=== PATIENT | male | born 1980 | race Caucasian/White ===

== ENCOUNTER 2017-01-24 17:02 | Emergency (ER) | payer OTHER ==
[2017-01-24 17:06] VITALS: BP 135/82; PULSE 110; TEMP 99; BMI 29.2
[2017-01-24] MEDS ORDERED: CEPHALEXIN MONOHYDRATE 500 MG CAPSULE (UD) PO ONE (18:35)
--- NOTE | 2017-01-24 18:40 | PDOC ---
History of Present Illness - General Chief Complaint: Redness To Affected Area Stated Complaint: INFECTION Time Seen by Provider: 01/24/17 18:13 History Source: Patient Exam Limitations: No Limitations - History of Present Illness Initial Comments: 01/24/17 18:37 Chief complaint: Tenderness between left fourth and fifth toe with redness and today redness has spread to dorsal foot slightly History of present illness: Patient is a 36-year-old male with no significant medical problems here today due to redness between his fourth and fifth toe for the last few days with tenderness and today patient noticed redness slightly proximal to those toes on his dorsal foot. Patient reported he had something like this in the past. Patient has noticeable peeling of his skin between his other toes and on plantar feet that is slightly itchy. Denies any fever. Timing/Duration: getting worse Severity: mild (redness between left 4 & 5 th toes and slightly proximal to toes today ) Associated Symptoms: reports: other (redness between left 4th & 5th toe, and proximal to those toes today) Past History - Past Medical History Allergies/Adverse Reactions: Allergies Allergy/AdvReac Type Severity Reaction Status Date / Time No Known Allergies Allergy Verified 01/24/17 17:07 Home Medications: Ambulatory Orders Cephalexin Monohydrate [Keflex -] 500 mg PO Q8H #29 capsule 01/24/17 Clotrimazole [Lotrimin 1% Cream -] 1 applic TP BID #1 tube MDD 2 01/24/17 Other medical history: NONE - Surgical History Appendectomy: Yes - Psycho/Social/Smoking Cessation Hx Anxiety: No Suicidal Ideation: No Smoking History: Never smoked Have you smoked in the past 12 months: No Hx Alcohol Use: No Drug/Substance Use Hx: No Substance Use Type: None Review of Systems - Review of Systems Able to Perform ROS?: Yes Constitutional: No: Symptoms Reported HEENTM: No: Symptoms Reported Respiratory: No: Symptoms reported Cardiac (ROS): No: Symptoms Reported ABD/GI: No: Symptoms Reported Musculoskeletal: No: Symptoms Reported Integumentary: Yes: Erythema (between left 4th & 5th toes with erythema proximally dorsal foot), Other (peeling itchy skin plantar feet and between toes ) *Physical Exam - Vital Signs Last Vital Signs Temp Pulse Resp BP Pulse Ox 99.0 F 110 H 20 135/82 97 01/24/17 17:03 01/24/17 17:03 01/24/17 17:03 01/24/17 17:03 01/24/17 17:03 - Physical Exam General Appearance: Yes: Appropriately Dressed Vascular Pulses: Doralis-Pedis (L): 4+ Extremity: positive: Normal Capillary Refill, Normal Inspection, Normal Range of Motion Integumentary: positive: Erythema, Other (between left 4th & 5th toes with erythema slightly proximal to dorsal foot (area outlined), peeling skin on plantar feet b/l and between toes ) Neurologic: positive: Alert, Normal Response, Respond to painful stimul, Responsive Medical Decision Making - Medical Decision Making 01/24/17 18:39 Patient is a 36-year-old male with no significant medical problems here today due to redness between his fourth and fifth toe for the last few days with tenderness and today patient noticed redness slightly proximal to those toes on his dorsal foot. Patient reported he had something like this in the past. Patient has noticeable peeling of his skin between his other toes and on plantar feet that is slightly itchy. Denies any fever. cellulitis between left 4th and 5th toes and slightly proximal to toes dorsally PLAN: keflex 500 mg po now than q6 hrs for 10 days lotrimin cm bid to plantar feet and between toes podiatry follow up return if symptoms worsen 01/24/17 22:15 *DC/Admit/Observation/Transfer Diagnosis at time of Disposition: Cellulitis of foot, left Tinea pedis Qualifiers: Laterality: bilateral Qualified Code(s): B35.3 - Tinea pedis - Discharge Dispostion Disposition: HOME Condition at time of disposition: Stable - Prescriptions Prescriptions: Cephalexin Monohydrate [Keflex -] 500 mg PO Q8H #29 capsule Clotrimazole [Lotrimin 1% Cream -] 1 applic TP BID #1 tube MDD 2 - Referrals Referrals: Zoë Tatum [Primary Care Provider] - Jeet Valentin MD [Staff Physician] - - Patient Instructions Additional Instructions: Return to emergency room if redness of left foot worsens or any new symptoms develop Make sure that you dry thoroughly between your nose and dry your feet well then apply cream that was ordered today Follow-up with application specialist within the next week Patient voiced understanding of discharge instructions and all questions were answered
[2017-01-24] MEDS ORDERED: CEPHALEXIN MONOHYDRATE 500 MG CAPSULE (UD) ONE (18:46)
== END 2017-01-24 18:45 | disposition home or self-care (01) ==
LOC: JERFT 17:02
DX: L03.116 Cellulitis of left lower limb (principal); B35.3 Tinea pedis
CPT/HCPCS: 99281-25